=== PATIENT | male | born 1945 | race Caucasian/White ===

== ENCOUNTER 2017-05-12 20:45 | Inpatient (IN) | payer MEDICARE, MEDICAID, OTHER ==
[~2017-05-12] VITALS: Ht 172.7 cm; Wt 57.1 kg
[2017-05-12 21:36] VITALS: BP 153/92; PULSE 77; RESP 18; TEMP 97.4; O2SAT 96
[2017-05-13 03:06] LABS: AUTOMATED NEUTROPHIL # 5.3 TH/MM3 (1.8-7.7); BASOPHIL % 0.6 % (0.0-2.0); EOSINOPHIL % 0.3 % (0.0-4.0); HEMATOCRIT 40.6 % (39.0-51.0); HEMOGLOBIN 14.7 GM/DL (13.0-17.0); LYMPH % 17.7 % (9.0-44.0); LYMPHOCYTE # 1.3 TH/MM3 (1.0-4.8); MEAN CELL VOLUME 94.6 FL (80.0-100.0); MEAN CORPUSCULAR HEMOGLOBIN 34.2 PG (27.0-34.0); MEAN CORPUSCULAR HGB CONC 36.2 % (32.0-36.0); MONO % 8.3 % (0.0-8.0); MONOCYTE # 0.6 TH/MM3 (0-0.9); NEUT % 73.1 % (16.0-70.0); PLATELET COUNT 157 TH/MM3 (150-450); RED BLOOD COUNT 4.29 MIL/MM3 (4.50-5.90); RED CELL DISTRIBUTION WIDTH 13.8 % (11.6-17.2); WHITE BLOOD COUNT 7.2 TH/MM3 (4.0-11.0)
[2017-05-13 03:07] LABS: AMORPHOUS SEDIMENT, URINE RARE; BACTERIA, URINE RARE /hpf; BILIRUBIN, URINE NEG (NEG); BLOOD, URINE MOD (NEG); GLUCOSE,URINE NEG (NEG); KETONE, URINE 10 mg/dL (NEG); MUCUS URINE FEW /lpf (OCC); NITRITE,URINE NEG (NEG); SQUAMOUS EPITHELIAL CELL URINE 1 /hpf (0-5); URINE COLOR YELLOW (YELLW/STRAW); URINE LEUKOCYTE ESTERASE NEG (NEG)
[2017-05-13 03:20] LABS: ALBUMIN 3.7 GM/DL (3.4-5.0); ALT (GPT) 10 U/L (12-78); AST (GOT) 19 U/L (15-37); BICARBONATE 25.2 MEQ/L (21.0-32.0); BLOOD UREA NITROGEN 13 MG/DL (7-18); CALCIUM 8.5 MG/DL (8.5-10.1); CHLORIDE 108 MEQ/L (98-107); GLOMERULAR FILTRATION RATE 95 ML/MIN (>89); GLUCOSE,RANDOM 97 MG/DL (74-106); SODIUM (NA) 141 MEQ/L (136-145)
[2017-05-13 03:29] LABS: ALKALINE PHOSPHATASE 73 U/L (45-117); TOTAL BILIRUBIN ADULT 1.4 MG/DL (0.2-1.0); TOTAL PROTEIN 6.8 GM/DL (6.4-8.2)
[2017-05-13 03:37] LABS: OVALOCYTES 1+ (NORMAL)
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
[2017-05-13 08:00] VITALS: BP 146/87; PULSE 71; RESP 17; TEMP 97.9; O2SAT 98
[2017-05-13] MEDS ORDERED: CARB25TA18 (09:21)
[2017-05-13] MEDS ORDERED: CARBIDOPA/LEVODOPA 25 MG/100 MG TAB PO SCH (11:45)
[2017-05-13 12:00] VITALS: BP 152/89; PULSE 74; RESP 15; O2SAT 97
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
[2017-05-13] MEDS ORDERED: MAGNESIUM HYDROXIDE SUSP 30 ML CUP PO PRN (13:30)
[2017-05-13] MEDS ORDERED: ALUMINUM/MAGNESIUM/SIMETH 30 ML CUP PO PRN (13:30)
[2017-05-13] MEDS ORDERED: ACETAMINOPHEN 325 MG TAB PO PRN (13:30)
[2017-05-13 14:40] VITALS: BP 166/85; PULSE 89; RESP 18; TEMP 97.8; O2SAT 89; O2SAT 97
--- NOTE | 2017-05-13 23:20 | EKG ---
Date Performed: 05/13/2017 Time Performed: 14:35:27 PTAGE: 72 years EKG: Sinus rhythm RIGHT AXIS DEVIATION CONSIDER ARM LEAD REVERSAL NONSPECIFIC T-WAVE ABNORMALITY ABNORMAL ECG NO PREVIOUS TRACING DOCTOR: Xiang Calhoun Interpretating Date/Time 05/13/2017 23:19:03
[2017-05-14 05:52] VITALS: BP 145/80; PULSE 65; RESP 17; TEMP 97.7; O2SAT 98
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
[2017-05-14] MEDS: CARBIDOPA/LEVODOPA 25 MG/100 MG TAB PO SCH ×3 (13:00→21:01)
[2017-05-14 13:11] LABS: BICARBONATE 26.9 MEQ/L (21.0-32.0); BLOOD UREA NITROGEN 18 MG/DL (7-18); CALCIUM 9.9 MG/DL (8.5-10.1); CHLORIDE 105 MEQ/L (98-107); CHOLESTEROL 157 MG/DL (120-200); CHOLESTEROL/ HDL RATIO 2.36 RATIO; CREATININE 0.86 MG/DL (0.60-1.30); GLOMERULAR FILTRATION RATE 88 ML/MIN (>89); GLUCOSE,RANDOM 72 MG/DL (74-106); HDL CHOLESTEROL 66.4 MG/DL (40.0-60.0); LDL CHOLESTEROL 78 MG/DL (0-99); SODIUM (NA) 139 MEQ/L (136-145); TRIGLYCERIDES 62 MG/DL (42-150)
--- NOTE | 2017-05-14 14:22 | EKG ---
Date Performed: 05/14/2017 Time Performed: 13:46:54 PTAGE: 72 years EKG: Sinus rhythm LEFT ANTERIOR FASCICULAR BLOCK VOLTAGE CRITERIA FOR LVH ABNORMAL ECG PREVIOUS TRACING : 05/13/2017 14.35 Compared to previous tracing, possible arm lead reversal is no longer evident. DOCTOR: Xiang Calhoun Interpretating Date/Time 05/14/2017 14:21:29
[2017-05-14 14:24] LABS: HEMOGLOBIN A1C 4.7 % (4.3-6.0)
[2017-05-14 18:11] VITALS: BP 110/63; PULSE 74; RESP 18; TEMP 98.1; O2SAT 97
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
[2017-05-15 05:39] VITALS: BP 130/66; PULSE 72; RESP 17; TEMP 98; O2SAT 99
[2017-05-15] MEDS: CARBIDOPA/LEVODOPA 25 MG/100 MG TAB PO SCH ×4 (08:41→21:15)
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
[2017-05-15 18:12] VITALS: BP 135/63; PULSE 58; RESP 16; TEMP 97.4; O2SAT 99
[2017-05-16 05:59] VITALS: BP 166/75; PULSE 68; RESP 16; TEMP 97.3
[2017-05-16] MEDS: CARBIDOPA/LEVODOPA 25 MG/100 MG TAB PO SCH ×4 (08:14→21:01)
--- NOTE | 2017-05-16 12:29 | HHI.PYPN ---
Subjective Remarks Patient seen and examined. Chart reviewed. Case discussed with nursing staff. No behavioral issues noted overnight. Case discussed with counselor. Counselor has reached out the patient's who is comfortable accepting the patient home tomorrow. On my examination today, the patient denies SI or HI. He denies any AVH. No mood symptoms. Regarding the circumstances of his presentation here the patient says "we just got out of hand" and elaborates to say "I took too much medicine one time." Denies side effects from current medications. No physical complaints. Review of Systems Except as stated in HPI: all other systems reviewed are Neg Mental Status Examination Appearance: Appropriate, Well dressed/well groomed Consciousness: Alert Orientation: Person, Place (at least) Motor Activity: Other (no resting tremor presently. Mild cogwheeling.) Speech: Unremarkable Language: Adequate Fund of Knowledge: Adequate Attention and Concentration: Adequate Memory: Impaired (fair) Mood: Appropriate Affect: Appropriate Thought Process & Associations: Intact Thought Content: Appropriate Hallucination Type: None Delusion Type: None Suicidal Ideation: No Suicidal Plan: No Suicidal Intention: No Homicidal Ideation: No Homicidal Plan: No Homicidal Intention: No Mental Status Exam Remarks Insight and judgment are perhaps fair Results Labs Labs reviewed. Vitals/IOs Vital Signs Date Time Temp Pulse Resp B/P (MAP) Pulse Ox O2 Delivery O2 Flow Rate FiO2 05/16/17 05:59 97.3 68 16 166/75 (105) 05/15/17 18:12 99 05/13/17 12:00 Room Air Intake and Output 05/16/17 05/16/17 05/17/17 08:00 16:00 00:00 Intake Total 480 ml Balance 480 ml Assessment & Plan Problem List: (1) Adjustment disorder with mixed disturbance of emotions and conduct ICD Codes: F43.25 - Adjustment disorder with mixed disturbance of emotions and conduct Assessment & Plan Continue Sinemet as ordered. Neurology input noted and appreciated. Hospitalist input noted and appreciated. Continue to monitor on the inpatient unit. Continue other medications and care as ordered. Justification for Cont. Inpt. Final discharge planning Discharge Planning Anticipate discharge tomorrow Tom Toney MD May 16, 2017 12:29
[2017-05-16 18:18] VITALS: BP 146/69; PULSE 66; RESP 18; TEMP 97.7; O2SAT 100
[2017-05-17 05:26] VITALS: BP 148/75; PULSE 71; RESP 16; TEMP 97.8; O2SAT 95
[2017-05-17] MEDS: CARBIDOPA/LEVODOPA 25 MG/100 MG TAB PO SCH ×3 (08:32→17:19)
[2017-05-17] MEDS ORDERED: Carbidopa-Levodopa 25-100 Mg PO (09:26)
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
[2017-05-17 17:38] VITALS: BP 135/70; PULSE 76; TEMP 97.5; O2SAT 96
== END 2017-05-17 20:40 | disposition home or self-care (01) | DRG 882 ==
LOC: NEPE 20:45 → NEDA 05-13 13:26 → H250 05-13 14:40
PROVIDERS: ADMIT Psychiatry & Neurology Psychiatry; ATTEND Psychiatry & Neurology Psychiatry
DX: F43.25 Adjustment disorder with mixed disturbance of emotions and conduct (principal); G20 Parkinson's disease; F02.80 Dementia in other diseases classified elsewhere, unspecified severity, without behavioral disturbance, psychotic disturbance, mood disturbance, and anxiety; M19.90 Unspecified osteoarthritis, unspecified site; R03.0 Elevated blood-pressure reading, without diagnosis of hypertension
CPT/HCPCS: 80048; 80053; 80061; 80307; 81001; 83036; 84443; 85025; 93005

== ENCOUNTER 2017-09-03 13:36 | Emergency (ER) | payer MEDICARE, OTHER ==
[~2017-09-03] VITALS: Ht 172.7 cm; Wt 65.0 kg
[~2017-09-03 13:36] MED LIST: Carbidopa-Levodopa 25-100 Mg PO
[2017-09-03 13:56] VITALS: BP 148/77; PULSE 106; RESP 16; TEMP 98.1; O2SAT 97
[2017-09-03] MEDS ORDERED: CARBIDOPA/LEVODOPA 25 MG/100 MG TAB PO SCH (15:45)
--- NOTE | 2017-09-03 16:01 | PD ---
HPI Chief Complaint: Medical Clearance Time Seen by Provider: 15:33 Travel History International Travel<30 days: No Contact w/Intl Traveler<30days: No Traveled to known affect area: No History of Present Illness HPI Patient is a 72-year-old male presenting to to the emergency department for medication refill. Patient has a history of Parkinson's disease, he reports that he takes Sinemet every 4 hours, he has not had it in 6 hours. When he does not take it he states that he has a hard time walking. Patient can move his legs, he denies any back pain. Patient reports that the symptoms are similar to what is experienced in the past. He denies any bladder bowel incontinence, no saddle paresthesia. Patient had to be brought into emergency department in a wheelchair, when he got to [facility] he was ambulatory. He denies any pain. PFSH Past Medical History Arthritis: Yes (arthritis in legs) Hypertension: Yes Musculoskeletal: Yes Parkinson's Disease: Yes Past Surgical History Other Surgery: Yes Social History Alcohol Use: No Tobacco Use: No Substance Use: No Allergies-Medications (Allergen,Severity, Reaction): Coded Allergies: MRI PRECAUTION (Verified Allergy, Unknown, 05/14/17) Left shoulder metal prosthesis Reported Meds & Prescriptions Reported Meds & Active Scripts Active [Carbidopa-Levodopa 25-100 Mg] 1 TAB Tab 1 Tab PO QID 15 Days Review of Systems Except as stated in HPI: all other systems reviewed are Neg Neurologic: Positive: Weakness, Focal Abnormalities, Tremor Physical Exam Narrative GENERAL: Well-developed, well-nourished, alert elderly male. Presenting in no acute distress. SKIN: Warm and dry. HEAD: Atraumatic. Normocephalic. EYES: Pupils equal and round. No scleral icterus. No injection or drainage. ENT: No nasal bleeding or discharge. Mucous membranes pink and moist. NECK: Trachea midline. No JVD. CARDIOVASCULAR: Regular rate and rhythm. RESPIRATORY: No accessory muscle use. Clear to auscultation. Breath sounds equal bilaterally. GASTROINTESTINAL: Abdomen soft, non-tender, nondistended. Hepatic and splenic margins not palpable. MUSCULOSKELETAL: Extremities without clubbing, cyanosis, or edema. No obvious deformities. NEUROLOGICAL: Awake and alert. No obvious cranial nerve deficits. Motor grossly within normal limits. Five out of 5 muscle strength in the arms and legs. Tremor upper extremities. PSYCHIATRIC: Appropriate mood and affect; insight and judgment normal. Data Data Last Documented VS Vital Signs Date Time Temp Pulse Resp B/P (MAP) Pulse Ox O2 Delivery O2 Flow Rate FiO2 09/03/17 15:40 18 09/03/17 13:56 98.1 106 148/77 (100) 97 Orders Orders Carbidopa-Levodopa 25-100 Mg (Sinemet 25 (09/03/17 15:45) Complete Blood Count With Diff (09/03/17 15:56) Comprehensive Metabolic Panel (09/03/17 15:56) Urinalysis - C+S If Indicated (09/03/17 15:56) Labs Laboratory Tests Test 09/03/17 16:25 White Blood Count 5.8 TH/MM3 Red Blood Count 4.33 MIL/MM3 Hemoglobin 14.8 GM/DL Hematocrit 42.1 % Mean Corpuscular Volume 97.2 FL Mean Corpuscular Hemoglobin 34.1 PG Mean Corpuscular Hemoglobin Concent 35.1 % Red Cell Distribution Width 13.0 % Platelet Count 158 TH/MM3 Mean Platelet Volume 8.1 FL Neutrophils (%) (Auto) 64.6 % Lymphocytes (%) (Auto) 21.3 % Monocytes (%) (Auto) 12.1 % Eosinophils (%) (Auto) 1.3 % Basophils (%) (Auto) 0.7 % Neutrophils # (Auto) 3.8 TH/MM3 Lymphocytes # (Auto) 1.2 TH/MM3 Monocytes # (Auto) 0.7 TH/MM3 Eosinophils # (Auto) 0.1 TH/MM3 Basophils # (Auto) 0.0 TH/MM3 CBC Comment DIFF FINAL Differential Comment Blood Urea Nitrogen 19 MG/DL Creatinine 0.94 MG/DL Random Glucose 91 MG/DL Total Protein 7.1 GM/DL Albumin 4.1 GM/DL Calcium Level 8.7 MG/DL Alkaline Phosphatase 89 U/L Aspartate Amino Transf (AST/SGOT) 24 U/L Alanine Aminotransferase (ALT/SGPT) 15 U/L Total Bilirubin 1.0 MG/DL Sodium Level 144 MEQ/L Potassium Level 3.7 MEQ/L Chloride Level 109 MEQ/L Carbon Dioxide Level 27.7 MEQ/L Anion Gap 7 MEQ/L Estimat Glomerular Filtration Rate 79 ML/MIN MDM Medical Decision Making Medical Screen Exam Complete: Yes Emergency Medical Condition: Yes Interpretation(s) Laboratory Tests Test 09/03/17 16:25 White Blood Count 5.8 TH/MM3 Red Blood Count 4.33 MIL/MM3 Hemoglobin 14.8 GM/DL Hematocrit 42.1 % Mean Corpuscular Volume 97.2 FL Mean Corpuscular Hemoglobin 34.1 PG Mean Corpuscular Hemoglobin Concent 35.1 % Red Cell Distribution Width 13.0 % Platelet Count 158 TH/MM3 Mean Platelet Volume 8.1 FL Neutrophils (%) (Auto) 64.6 % Lymphocytes (%) (Auto) 21.3 % Monocytes (%) (Auto) 12.1 % Eosinophils (%) (Auto) 1.3 % Basophils (%) (Auto) 0.7 % Neutrophils # (Auto) 3.8 TH/MM3 Lymphocytes # (Auto) 1.2 TH/MM3 Monocytes # (Auto) 0.7 TH/MM3 Eosinophils # (Auto) 0.1 TH/MM3 Basophils # (Auto) 0.0 TH/MM3 CBC Comment DIFF FINAL Differential Comment Blood Urea Nitrogen 19 MG/DL Creatinine 0.94 MG/DL Random Glucose 91 MG/DL Total Protein 7.1 GM/DL Albumin 4.1 GM/DL Calcium Level 8.7 MG/DL Alkaline Phosphatase 89 U/L Aspartate Amino Transf (AST/SGOT) 24 U/L Alanine Aminotransferase (ALT/SGPT) 15 U/L Total Bilirubin 1.0 MG/DL Sodium Level 144 MEQ/L Potassium Level 3.7 MEQ/L Chloride Level 109 MEQ/L Carbon Dioxide Level 27.7 MEQ/L Anion Gap 7 MEQ/L Estimat Glomerular Filtration Rate 79 ML/MIN Vital Signs Date Time Temp Pulse Resp B/P (MAP) Pulse Ox O2 Delivery O2 Flow Rate FiO2 09/03/17 15:40 18 09/03/17 13:56 98.1 106 16 148/77 (100) 97 Differential Diagnosis Parkinson's versus metabolic abnormality versus overdose versus neurological deficit versus other Narrative Course Patient is a 72-year-old male that presented from [facility] for evaluation of possible medication refill and gait abnormality. Patient states that this happened to him before when he misses doses of Sinemet. Patient was given his normal home dose. Labs were assessed, there were no acute findings. Patient was able to get out of bed with assistance and he had a shuffling gait for about 6 feet. Patient is unsteady on his feet. Patient was given Sinemet approximately half an hour prior. Will reassess. Care of patient transferred to Rell RODRIGUEZ at the end of my shift, he will determine patient's disposition Alma Jimenes Sep 03, 2017 16:01
[2017-09-03 16:41] LABS: AUTOMATED NEUTROPHIL # 3.8 TH/MM3 (1.8-7.7); BASOPHIL % 0.7 % (0.0-2.0); EOSINOPHIL # 0.1 TH/MM3 (0-0.4); EOSINOPHIL % 1.3 % (0.0-4.0); HEMATOCRIT 42.1 % (39.0-51.0); HEMOGLOBIN 14.8 GM/DL (13.0-17.0); LYMPH % 21.3 % (9.0-44.0); LYMPHOCYTE # 1.2 TH/MM3 (1.0-4.8); MEAN CELL VOLUME 97.2 FL (80.0-100.0); MEAN CORPUSCULAR HEMOGLOBIN 34.1 PG (27.0-34.0); MEAN CORPUSCULAR HGB CONC 35.1 % (32.0-36.0); MEAN PLATELET VOLUME 8.1 FL (7.0-11.0); MONO % 12.1 % (0.0-8.0); MONOCYTE # 0.7 TH/MM3 (0-0.9); NEUT % 64.6 % (16.0-70.0); PLATELET COUNT 158 TH/MM3 (150-450); RED BLOOD COUNT 4.33 MIL/MM3 (4.50-5.90); WHITE BLOOD COUNT 5.8 TH/MM3 (4.0-11.0)
[2017-09-03 17:08] LABS: ALBUMIN 4.1 GM/DL (3.4-5.0); BICARBONATE 27.7 MEQ/L (21.0-32.0); BLOOD UREA NITROGEN 19 MG/DL (7-18); CALCIUM 8.7 MG/DL (8.5-10.1); CHLORIDE 109 MEQ/L (98-107); CREATININE 0.94 MG/DL (0.60-1.30); GLOMERULAR FILTRATION RATE 79 ML/MIN (>89); GLUCOSE,RANDOM 91 MG/DL (74-106); SODIUM (NA) 144 MEQ/L (136-145)
[2017-09-03 17:22] LABS: ALKALINE PHOSPHATASE 89 U/L (45-117); ALT (GPT) 15 U/L (12-78); AST (GOT) 24 U/L (15-37); TOTAL PROTEIN 7.1 GM/DL (6.4-8.2)
[2017-09-03] MEDS ORDERED: Carbidopa-Levodopa 25-100 Mg PO (19:16)
--- NOTE | 2017-09-03 19:17 | PD ---
Data Data Last Documented VS Vital Signs Date Time Temp Pulse Resp B/P (MAP) Pulse Ox O2 Delivery O2 Flow Rate FiO2 09/03/17 15:40 18 09/03/17 13:56 98.1 106 148/77 (100) 97 Orders Orders Carbidopa-Levodopa 25-100 Mg (Sinemet 25 (09/03/17 15:45) Complete Blood Count With Diff (09/03/17 15:56) Comprehensive Metabolic Panel (09/03/17 15:56) Urinalysis - C+S If Indicated (09/03/17 15:56) Psych Screen (09/03/17 20:27) Labs Laboratory Tests Test 09/03/17 16:25 09/03/17 19:25 White Blood Count 5.8 TH/MM3 Red Blood Count 4.33 MIL/MM3 Hemoglobin 14.8 GM/DL Hematocrit 42.1 % Mean Corpuscular Volume 97.2 FL Mean Corpuscular Hemoglobin 34.1 PG Mean Corpuscular Hemoglobin Concent 35.1 % Red Cell Distribution Width 13.0 % Platelet Count 158 TH/MM3 Mean Platelet Volume 8.1 FL Neutrophils (%) (Auto) 64.6 % Lymphocytes (%) (Auto) 21.3 % Monocytes (%) (Auto) 12.1 % Eosinophils (%) (Auto) 1.3 % Basophils (%) (Auto) 0.7 % Neutrophils # (Auto) 3.8 TH/MM3 Lymphocytes # (Auto) 1.2 TH/MM3 Monocytes # (Auto) 0.7 TH/MM3 Eosinophils # (Auto) 0.1 TH/MM3 Basophils # (Auto) 0.0 TH/MM3 CBC Comment DIFF FINAL Differential Comment Blood Urea Nitrogen 19 MG/DL Creatinine 0.94 MG/DL Random Glucose 91 MG/DL Total Protein 7.1 GM/DL Albumin 4.1 GM/DL Calcium Level 8.7 MG/DL Alkaline Phosphatase 89 U/L Aspartate Amino Transf (AST/SGOT) 24 U/L Alanine Aminotransferase (ALT/SGPT) 15 U/L Total Bilirubin 1.0 MG/DL Sodium Level 144 MEQ/L Potassium Level 3.7 MEQ/L Chloride Level 109 MEQ/L Carbon Dioxide Level 27.7 MEQ/L Anion Gap 7 MEQ/L Estimat Glomerular Filtration Rate 79 ML/MIN Urine Color YELLOW Urine Turbidity CLEAR Urine pH 6.0 Urine Specific [place] 1.021 Urine Protein NEG mg/dL Urine Glucose (UA) NEG mg/dL Urine Ketones TRACE mg/dL Urine Occult Blood NEG Urine Nitrite NEG Urine Bilirubin NEG Urine Urobilinogen 4.0 OR GREATER mg/dL Urine Leukocyte Esterase NEG Urine RBC LESS THAN 1 /hpf Urine WBC 2 /hpf Urine Mucus FEW /lpf Microscopic Urinalysis Comment CULT NOT INDICATED MDM Medical Record Reviewed: Yes Supervised Visit with OSMEL: No Narrative Course See previous providers notes for complete history of present illness. I assumed care of this patient to follow-up after Sinemet administration. He was sent here by [facility] for medical clearance. Essentially he ran out of his Sinemet which he uses for Parkinson's disease and he was having difficulty ambulating. He was given Sinemet. Upon my examination he is able to ambulate down the hallway without any difficulty. He reports that he feels perfectly fine. He will be given a refill of his Sinemet. He is medically cleared. Terrell Hameedjannet declines taking the patient back to their institution and feels that he is outside of their scope of practice. Diagnosis Primary Impression: Medication refill Med/Other Pt SpecificInfo: Prescription(s) given Scripts [Carbidopa-Levodopa 25-100 Mg] 1 TAB TAB No Conflict Check 1 TAB PO QID for Parkinson's Disease for 15 Days, 1 Refill Prov: Santiago Jarrell MD 09/03/17 Rell Carlos Sep 03, 2017 19:17
[2017-09-03 20:17] LABS: BILIRUBIN, URINE NEG (NEG); BLOOD, URINE NEG (NEG); GLUCOSE,URINE NEG (NEG); KETONE, URINE TRACE mg/dL (NEG); MUCUS URINE FEW /lpf (OCC); NITRITE,URINE NEG (NEG); URINE COLOR YELLOW (YELLW/STRAW); URINE LEUKOCYTE ESTERASE NEG (NEG)
[2017-09-03 20:31] VITALS: BP 177/94; PULSE 98; RESP 18; O2SAT 97
[2017-09-03] MEDS ORDERED: SERO50TA PO ×2 (21:33→23:18)
[2017-09-03] MEDS ORDERED: SERO200T PO (23:22)
[2017-09-04] MEDS: CARBIDOPA/LEVODOPA 25 MG/100 MG TAB PO SCH ×6 (03:53→17:01)
[2017-09-04 07:15] VITALS: BP 157/68; PULSE 80; RESP 18; TEMP 98.5; O2SAT 100
[2017-09-04] MEDS ORDERED: CARBIDOPA/LEVODOPA 25 MG/100 MG TAB PO SCH (08:30)
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
[2017-09-04 13:00] VITALS: BP 160/70; PULSE 89; RESP 18; TEMP 98.5; O2SAT 100
--- NOTE | 2017-09-04 15:44 | PD ---
Physical Exam Date Seen by Provider: Sep 04, 2017 Time Seen by Provider: 15:41 Data Data Last Documented VS Vital Signs Date Time Temp Pulse Resp B/P (MAP) Pulse Ox O2 Delivery O2 Flow Rate FiO2 09/04/17 13:00 98.5 89 18 160/70 (100) 100 Room Air Orders Orders Carbidopa-Levodopa 25-100 Mg (Sinemet 25 (09/03/17 15:45) Complete Blood Count With Diff (09/03/17 15:56) Comprehensive Metabolic Panel (09/03/17 15:56) Urinalysis - C+S If Indicated (09/03/17 15:56) Psych Screen (09/03/17 20:27) Carbidopa-Levodopa 25-100 Mg (Sinemet 25 (09/04/17 02:45) Carbidopa-Levodopa 25-100 Mg (Sinemet 25 (09/04/17 08:30) Carbidopa-Levodopa 25-100 Mg (Sinemet 25 (09/04/17 12:00) Diet Regular Basic (09/04/17 Dinner) Ed Discharge Order (09/04/17 15:41) Labs Laboratory Tests Test 09/03/17 16:25 09/03/17 19:25 White Blood Count 5.8 TH/MM3 Red Blood Count 4.33 MIL/MM3 Hemoglobin 14.8 GM/DL Hematocrit 42.1 % Mean Corpuscular Volume 97.2 FL Mean Corpuscular Hemoglobin 34.1 PG Mean Corpuscular Hemoglobin Concent 35.1 % Red Cell Distribution Width 13.0 % Platelet Count 158 TH/MM3 Mean Platelet Volume 8.1 FL Neutrophils (%) (Auto) 64.6 % Lymphocytes (%) (Auto) 21.3 % Monocytes (%) (Auto) 12.1 % Eosinophils (%) (Auto) 1.3 % Basophils (%) (Auto) 0.7 % Neutrophils # (Auto) 3.8 TH/MM3 Lymphocytes # (Auto) 1.2 TH/MM3 Monocytes # (Auto) 0.7 TH/MM3 Eosinophils # (Auto) 0.1 TH/MM3 Basophils # (Auto) 0.0 TH/MM3 CBC Comment DIFF FINAL Differential Comment Blood Urea Nitrogen 19 MG/DL Creatinine 0.94 MG/DL Random Glucose 91 MG/DL Total Protein 7.1 GM/DL Albumin 4.1 GM/DL Calcium Level 8.7 MG/DL Alkaline Phosphatase 89 U/L Aspartate Amino Transf (AST/SGOT) 24 U/L Alanine Aminotransferase (ALT/SGPT) 15 U/L Total Bilirubin 1.0 MG/DL Sodium Level 144 MEQ/L Potassium Level 3.7 MEQ/L Chloride Level 109 MEQ/L Carbon Dioxide Level 27.7 MEQ/L Anion Gap 7 MEQ/L Estimat Glomerular Filtration Rate 79 ML/MIN Urine Color YELLOW Urine Turbidity CLEAR Urine pH 6.0 Urine Specific [place] 1.021 Urine Protein NEG mg/dL Urine Glucose (UA) NEG mg/dL Urine Ketones TRACE mg/dL Urine Occult Blood NEG Urine Nitrite NEG Urine Bilirubin NEG Urine Urobilinogen 4.0 OR GREATER mg/dL Urine Leukocyte Esterase NEG Urine RBC LESS THAN 1 /hpf Urine WBC 2 /hpf Urine Mucus FEW /lpf Microscopic Urinalysis Comment CULT NOT INDICATED MDM Supervised Visit with OSMEL: No Narrative Course This patient was initially brought in for evaluation of gait difficulties. Patient has Parkinson's, states that he has these symptoms when he does not get his Sinemet. He was evaluated by SHARITA Rivas and Rell Carlos PA-C and medically cleared. He was then evaluated by Anabell Lisa, the psychiatric mental health nurse and deemed stable for discharge. Plan is for the patient to follow-up with outpatient resources. He stable and discharged home. Diagnosis Primary Impression: Parkinson disease Additional Impression: Adjustment disorder Qualified Codes: F43.20 - Adjustment disorder, unspecified Referrals: [facility] (Out patient) Additional Instruction: Resume at home medications as previously prescribed. Scripts [Carbidopa-Levodopa 25-100 Mg] 1 TAB TAB No Conflict Check 1 TAB PO QID for Parkinson's Disease for 15 Days, 1 Refill Prov: Santiago Jarrell MD 09/03/17 Disposition: DISCHARGE HOME Condition: Stable Juliana Beck Sep 04, 2017 15:44
[2017-09-04 17:00] VITALS: BP 155/65; PULSE 82; RESP 18; TEMP 98.5; O2SAT 100
== END 2017-09-04 19:51 | disposition home or self-care (01) ==
LOC: NEPD 13:36
DX: G20 Parkinson's disease (principal); F43.20 Adjustment disorder, unspecified; R53.1 Weakness; R25.1 Tremor, unspecified; M19.90 Unspecified osteoarthritis, unspecified site; I10 Essential (primary) hypertension; Z79.899 Other long term (current) drug therapy; Z91.14 Patient's other noncompliance with medication regimen
CPT/HCPCS: 80053; 81001; 85025; 99283

== ENCOUNTER 2017-09-08 17:55 | Emergency (ER) | payer MEDICARE, MEDICAID, OTHER ==
[~2017-09-08] VITALS: Ht 172.7 cm; Wt 66.0 kg
[~2017-09-08 17:55] MED LIST changes: +SERO200T PO; +SERO50TA PO
[2017-09-08 18:16] VITALS: BP 137/68; PULSE 72; RESP 18; O2SAT 98
--- NOTE | 2017-09-08 19:31 | PD ---
HPI Chief Complaint: Psychiatric Symptoms Time Seen by Provider: 19:07 Travel History International Travel<30 days: No Contact w/Intl Traveler<30days: No Traveled to known affect area: No History of Present Illness HPI 72-year-old white male presents emergency department under Giraldo act by PD. According to the Giraldo act the patient is unable to care for himself due to his Parkinson's and his dementia. He had been living at home with his . She has gotten a temporary injunction against him. She went to the hospital today to have her gallbladder taken out and she will not be home for several days. She had called the police advising them of this fact. They put him under a Giraldo act because he was alone at home and they were concerned that he could not take care of himself. The patient is not suicidal homicidal. He has detox and has home health care that visits. He denies any acute medical complaints. He states that he does not get along with his all the time and he does not understand the full extent of this temporary injunction against him. [facility] Past Medical History Arthritis: Yes (arthritis in legs) Hypertension: Yes Musculoskeletal: Yes Parkinson's Disease: Yes Tetanus Vaccination: Unknown ?: Not Past Surgical History Narrative Surgical Left shoulder surgery Other Surgery: Yes Social History Alcohol Use: No Tobacco Use: No Substance Use: No Allergies-Medications (Allergen,Severity, Reaction): Coded Allergies: MRI PRECAUTION (Verified Allergy, Unknown, 05/14/17) Left shoulder metal prosthesis No Known Allergies (Verified Allergy, Unknown, 09/08/17) Reported Meds & Prescriptions Reported Meds & Active Scripts Active [Carbidopa-Levodopa 25-100 Mg] 1 TAB Tab 1 Tab PO QID 15 Days Reported Seroquel (Quetiapine Fumarate) 200 Mg Tab 200 Mg PO HS Seroquel (Quetiapine Fumarate) 50 Mg Tab 50 Mg PO TID Review of Systems General / Constitutional: No: Fever Eyes: No: Visual changes HENT: No: Headaches Cardiovascular: No: Chest Pain or Discomfort Respiratory: No: Shortness of Breath Gastrointestinal: No: Abdominal Pain Genitourinary: No: Dysuria Musculoskeletal: Positive: Arthralgias, Pain Skin: No Rash Neurologic: Positive: Coordination Problem (Secondary to Parkinson's disease), Tremor, No: Weakness Psychiatric: Positive: Mood Disorder, No: Anxiety, Depression, Suicidal Ideations, Disorder of Thought, Substance Abuse, Homicidal Ideation Endocrine: No: Polydipsia Hematologic/Lymphatic: No: Easy Bruising Physical Exam Narrative GENERAL: Well-nourished, well-developed patient. SKIN: Warm and dry. HEAD: Normocephalic and atraumatic. EYES: No scleral icterus. No injection or drainage. ENT: No nasal drainage noted. Mucous membranes pink. Airway patent. NECK: Supple, trachea midline. Moves head freely without obvious discomfort. CARDIOVASCULAR: Regular rate and rhythm without murmurs, gallops, or rubs. RESPIRATORY: Breath sounds equal bilaterally. No accessory muscle use. GASTROINTESTINAL: Abdomen soft, non-tender, nondistended. EXTREMITIES: No cyanosis or edema. BACK: Nontender without obvious deformity. No CVA tenderness. NEURO: Patient is alert and oriented. Patient has tremor of Parkinson's. He can ambulate on his own but does walk very slowly and has a wide-based gait. The normal speech. PSYCH: No delusions. No auditory or visual hallucinations. Data Data Last Documented VS Vital Signs Date Time Temp Pulse Resp B/P (MAP) Pulse Ox O2 Delivery O2 Flow Rate FiO2 09/08/17 18:16 72 18 137/68 (91) 98 Orders Orders Complete Blood Count With Diff (09/08/17 18:37) Comprehensive Metabolic Panel (09/08/17 18:37) Thyroid Stimulating Hormone (09/08/17 18:37) Psych Screen (09/08/17 18:37) Drug Screen, Random Urine (09/08/17 18:37) Labs Laboratory Tests Test 09/08/17 19:00 [facility] Medical Decision Making Medical Screen Exam Complete: Yes Emergency Medical Condition: Yes Medical Record Reviewed: Yes Differential Diagnosis MDM: High Differential diagnoses: Schizophrenia, schizoaffective disorder, bipolar, anxiety, depression, adjustment reaction, mood disorder NOS, ODD, depressive disorder NOS, dementia, dementia with agitation, psychosis NOS, substance induced mood disorder, DMDD, Asperger syndrome, infection,electrolyte abnormality, malingering. Narrative Course Mental health screening discussed with the patient. Psychiatric screen ordered. Patient has been medically cleared. We have contacted case management regarding this patient. The patient does not appear to be suffering from acute mental illness. He will be evaluated by the psych screener. This is a problem with placement and and injunction by the his against him. The called police advising him that he would be alone and she knew he would be placed under Giraldo act. She is currently admitted to the hospital to have her gallbladder out and will not be home for 2 days. This is medical clearance for psychiatric admission Alec Holloway Sep 08, 2017 19:31
[2017-09-08 19:33] LABS: AUTOMATED NEUTROPHIL # 5.2 TH/MM3 (1.8-7.7); BASOPHIL % 0.4 % (0.0-2.0); EOSINOPHIL % 0.6 % (0.0-4.0); HEMATOCRIT 41.8 % (39.0-51.0); HEMOGLOBIN 14.5 GM/DL (13.0-17.0); LYMPH % 14.4 % (9.0-44.0); MEAN CELL VOLUME 96.8 FL (80.0-100.0); MEAN CORPUSCULAR HEMOGLOBIN 33.7 PG (27.0-34.0); MEAN CORPUSCULAR HGB CONC 34.8 % (32.0-36.0); MEAN PLATELET VOLUME 8.2 FL (7.0-11.0); MONO % 9.5 % (0.0-8.0); MONOCYTE # 0.7 TH/MM3 (0-0.9); NEUT % 75.1 % (16.0-70.0); PLATELET COUNT 145 TH/MM3 (150-450); RED BLOOD COUNT 4.31 MIL/MM3 (4.50-5.90); RED CELL DISTRIBUTION WIDTH 12.8 % (11.6-17.2)
[2017-09-08 19:51] LABS: ALBUMIN 3.8 GM/DL (3.4-5.0); AST (GOT) 16 U/L (15-37); BICARBONATE 25.3 MEQ/L (21.0-32.0); BLOOD UREA NITROGEN 12 MG/DL (7-18); CALCIUM 9.1 MG/DL (8.5-10.1); CHLORIDE 106 MEQ/L (98-107); CREATININE 0.85 MG/DL (0.60-1.30); GLOMERULAR FILTRATION RATE 89 ML/MIN (>89); GLUCOSE,RANDOM 100 MG/DL (74-106); SODIUM (NA) 140 MEQ/L (136-145)
[2017-09-08 19:53] LABS: ALT (GPT) 8 U/L (12-78)
[2017-09-08 20:02] LABS: ALKALINE PHOSPHATASE 92 U/L (45-117); TOTAL BILIRUBIN ADULT 1.4 MG/DL (0.2-1.0); TOTAL PROTEIN 6.9 GM/DL (6.4-8.2)
[2017-09-08] MEDS ORDERED: CARBIDOPA/LEVODOPA 25 MG/100 MG TAB PO SCH (22:45)
[2017-09-08] MEDS: QUEtiapine FUMARATE 300 MG TAB PO ONE (22:45)
[2017-09-09 04:29] VITALS: BP 154/78; PULSE 72; RESP 20; O2SAT 96
[2017-09-09 08:00] VITALS: BP 136/62; PULSE 82; RESP 16; TEMP 98; O2SAT 99
--- NOTE | 2017-09-09 11:18 | PD ---
History of Present Illness Chief Complaint: Psychiatric Symptoms Time Seen by Provider: 11:10 Travel History International Travel<30 Days: No Contact w/Intl Traveler<30days: No Known affected area: No Legal Status Legal Status: Giraldo Act History of Present Illness: History of Present Illness HPI 72-year-old white, male with hx of Parkinson's, adjustment disorder who presents to emergency department under G[place]do act by PD. According to the Giraldo act the patient is unable to care for himself due to his Parkinson's and his dementia. He is living at home with his but she has gotten a temporary injunction against him. She went to the hospital today to have her gallbladder taken out and she will not be home for several days. She had called the police advising them of this fact. They put him under a Giraldo act because he was alone at home and they were concerned that he could not take care of himself. He states that he does not get along with his all the time and he does not understand the full extent of this temporary injunction against him. EMR reviewed. Patient was admitted to our psychiatric unit on 2017. The patient is alert, oriented, calm and cooperative. Speech is clear and logical. No evidence of any thought process or content disturbance. Patient is anxious regarding his home, his upcoming court date on and the injunction his has filed. He denies any current suicdal or homicidal ideation, intent or plan. Patient denies any symptom of depression. He admits to having felt depressed 2 years ago when he was diagnosed with Parkinson's. No suicidal or homicidal ideation, intent or plan. Remainder of psychiatric ROS is negative. We have contacted case management regarding this patient. The patient does not appear to be suffering from acute mental illness. This is a problem with placement and and injunction by the his against him. The called police advising him that he would be alone and she knew he would be placed under Giraldo act. 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 History of Inpatient Treatment: Yes Guns or firearms in home: No Social History x 37 years. Hx Alcohol Use: No Hx Tobacco Use: No Hx Substance Use: No Hx of Substance Use Treatment: No Family Psychiatric History Negative Allergies-Medications (Allergen,Severity, Reaction): Coded Allergies: MRI PRECAUTION (Verified Allergy, Unknown, 05/14/17) Left shoulder metal prosthesis No Known Allergies (Verified Allergy, Unknown, 09/08/17) Reported Meds & Prescriptions Reported Meds & Active Scripts Active [Carbidopa-Levodopa 25-100 Mg] 1 TAB Tab 1 Tab PO QID 15 Days Reported Seroquel (Quetiapine Fumarate) 200 Mg Tab 200 Mg PO HS Seroquel (Quetiapine Fumarate) 50 Mg Tab 50 Mg PO TID Review of Systems Psychiatric: COMPLAINS OF: Anxiety Mental Status Examination Appearance: Disheveled Consciousness: Alert Orientation: x4 Motor Activity: Abnormal gait Speech: Unremarkable Language: Adequate Fund of Knowledge: Adequate Attention and Concentration: Adequate Memory: Unremarkable Mood: Anxious Affect: Appropriate Thought Process & Associations: Intact, Logical, Goal directed Thought Content: Appropriate Hallucination Type: None Delusion Type: None Suicidal Ideation: No Suicidal Plan: No Suicidal Intention: No Homicidal Ideation: No Homicidal Plan: No Homicidal Intention: No Insight: Adequate Judgment: Adequate MDM Medical Decision Making Medical Record Reviewed: Yes Assessment/Plan History of Present Illness HPI 72-year-old white, male with hx of Parkinson's, adjustment disorder who presents to emergency department under Giraldo act by PD. According to the Giraldo act the patient is unable to care for himself due to his Parkinson's and his dementia. He is living at home with his but she has gotten a temporary injunction against him. She went to the hospital today to have her gallbladder taken out and she will not be home for several days. She had called the police advising them of this fact. They put him under a Giraldo act because he was alone at home and they were concerned that he could not take care of himself. Patient presents no evidence of any thought process or content disturbance. No suicdal or homicidal ideation. No evidence of unstable mental illness. He is future oriented. He is anxious over upcoming court case as well as of finding himself homeless. He does nto meet criteria to remain under the BA. It will be lifted. Case discussed with weatherization operations manager. Orders Orders Complete Blood Count With Diff (09/08/17 18:37) Comprehensive Metabolic Panel (09/08/17 18:37) Thyroid Stimulating Hormone (09/08/17 18:37) Psych Screen (09/08/17 18:37) Drug Screen, Random Urine (09/08/17 18:37) Quetiapine (Seroquel) (09/08/17 22:45) Carbidopa-Levodopa 25-100 Mg (Sinemet 25 (09/08/17 22:45) Diet Regular Basic (09/09/17 Breakfast) Results Vital Signs Date Time Temp Pulse Resp B/P (MAP) Pulse Ox O2 Delivery O2 Flow Rate FiO2 09/09/17 08:00 98.0 82 16 136/62 (86) 99 Room Air 09/09/17 04:29 72 20 154/78 (103) 96 Room Air 09/08/17 18:16 72 18 137/68 (91) 98 Laboratory Tests Test 09/08/17 19:00 White Blood Count 7.0 Red Blood Count 4.31 Hemoglobin 14.5 Hematocrit 41.8 Mean Corpuscular Volume 96.8 Mean Corpuscular Hemoglobin 33.7 Mean Corpuscular Hemoglobin Concent 34.8 Red Cell Distribution Width 12.8 Platelet Count 145 Mean Platelet Volume 8.2 Neutrophils (%) (Auto) 75.1 Lymphocytes (%) (Auto) 14.4 Monocytes (%) (Auto) 9.5 Eosinophils (%) (Auto) 0.6 Basophils (%) (Auto) 0.4 Neutrophils # (Auto) 5.2 Lymphocytes # (Auto) 1.0 Monocytes # (Auto) 0.7 Eosinophils # (Auto) 0.0 Basophils # (Auto) 0.0 CBC Comment DIFF FINAL Differential Comment Blood Urea Nitrogen 12 Creatinine 0.85 Random Glucose 100 Total Protein 6.9 Albumin 3.8 Calcium Level 9.1 Alkaline Phosphatase 92 Aspartate Amino Transf (AST/SGOT) 16 Alanine Aminotransferase (ALT/SGPT) 8 Total Bilirubin 1.4 Sodium Level 140 Potassium Level 3.9 Chloride Level 106 Carbon Dioxide Level 25.3 Anion Gap 9 Estimat Glomerular Filtration Rate 89 Thyroid Stimulating Hormone 3rd Gen 1.650 Urine Opiates Screen NEG Urine Barbiturates Screen NEG Urine Amphetamines Screen NEG Urine Benzodiazepines Screen NEG Urine Cocaine Screen NEG Urine Cannabinoids Screen NEG Diagnosis Primary Impression: Adjustment disorder with mixed disturbance of emotions and conduct Psychiatrically Cleared: Yes Marta Talbot [facility] Sep 09, 2017 11:18
--- NOTE | 2017-09-09 12:16 | PD ---
Physical Exam Date Seen by Provider: Sep 09, 2017 Time Seen by Provider: 12:15 Narrative 72-year-old male previously on hospice and Giraldo acted as he is unable to care for himself at home to 's recent hospitalization, has been medically cleared , and seen by psychiatric services and deemed to be an appropriate for psych admission. Case management was notified and they are working on placement for hospice care until his to return home and care for him if that is appropriate. Data Data Last Documented VS Vital Signs Date Time Temp Pulse Resp B/P (MAP) Pulse Ox O2 Delivery O2 Flow Rate FiO2 09/09/17 08:00 98.0 82 16 136/62 (86) 99 Room Air Orders Orders Complete Blood Count With Diff (09/08/17 18:37) Comprehensive Metabolic Panel (09/08/17 18:37) Thyroid Stimulating Hormone (09/08/17 18:37) Psych Screen (09/08/17 18:37) Drug Screen, Random Urine (09/08/17 18:37) Quetiapine (Seroquel) (09/08/17 22:45) Carbidopa-Levodopa 25-100 Mg (Sinemet 25 (09/08/17 22:45) Diet Regular Basic (09/09/17 Breakfast) Hospice Consult (09/09/17 12:14) (Hub Use Only)Inp Phy Cons/Ref (09/09/17 ) Labs Laboratory Tests Test 09/08/17 19:00 White Blood Count 7.0 TH/MM3 Red Blood Count 4.31 MIL/MM3 Hemoglobin 14.5 GM/DL Hematocrit 41.8 % Mean Corpuscular Volume 96.8 FL Mean Corpuscular Hemoglobin 33.7 PG Mean Corpuscular Hemoglobin Concent 34.8 % Red Cell Distribution Width 12.8 % Platelet Count 145 TH/MM3 Mean Platelet Volume 8.2 FL Neutrophils (%) (Auto) 75.1 % Lymphocytes (%) (Auto) 14.4 % Monocytes (%) (Auto) 9.5 % Eosinophils (%) (Auto) 0.6 % Basophils (%) (Auto) 0.4 % Neutrophils # (Auto) 5.2 TH/MM3 Lymphocytes # (Auto) 1.0 TH/MM3 Monocytes # (Auto) 0.7 TH/MM3 Eosinophils # (Auto) 0.0 TH/MM3 Basophils # (Auto) 0.0 TH/MM3 CBC Comment DIFF FINAL Differential Comment Blood Urea Nitrogen 12 MG/DL Creatinine 0.85 MG/DL Random Glucose 100 MG/DL Total Protein 6.9 GM/DL Albumin 3.8 GM/DL Calcium Level 9.1 MG/DL Alkaline Phosphatase 92 U/L Aspartate Amino Transf (AST/SGOT) 16 U/L Alanine Aminotransferase (ALT/SGPT) 8 U/L Total Bilirubin 1.4 MG/DL Sodium Level 140 MEQ/L Potassium Level 3.9 MEQ/L Chloride Level 106 MEQ/L Carbon Dioxide Level 25.3 MEQ/L Anion Gap 9 MEQ/L Estimat Glomerular Filtration Rate 89 ML/MIN Thyroid Stimulating Hormone 3rd Gen 1.650 uIU/ML Urine Opiates Screen NEG Urine Barbiturates Screen NEG Urine Amphetamines Screen NEG Urine Benzodiazepines Screen NEG Urine Cocaine Screen NEG Urine Cannabinoids Screen NEG MDM Medical Record Reviewed: Yes Supervised Visit with OSMEL: Yes Narrative Course 72-year-old male previously on hospice and Giraldo acted as he is unable to care for himself at home to 's recent hospitalization, has been medically cleared , and seen by psychiatric services and deemed to be an appropriate for psych admission. Case management was notified and they are working on placement for hospice care until his to return home and care for him if that is appropriate. Diagnosis Primary Impression: Adjustment disorder with mixed disturbance of emotions and conduct Additional Impression: Parkinsons disease Patient Instructions: General Instructions Med/Other Pt SpecificInfo: No Change to Meds Condition: Stable Marty Martin Sep 09, 2017 12:16
--- NOTE | 2017-09-09 14:39 | PD ---
Data Data Last Documented VS Vital Signs Date Time Temp Pulse Resp B/P (MAP) Pulse Ox O2 Delivery O2 Flow Rate FiO2 09/09/17 08:00 98.0 82 16 136/62 (86) 99 Room Air Orders Orders Complete Blood Count With Diff (09/08/17 18:37) Comprehensive Metabolic Panel (09/08/17 18:37) Thyroid Stimulating Hormone (09/08/17 18:37) Psych Screen (09/08/17 18:37) Drug Screen, Random Urine (09/08/17 18:37) Quetiapine (Seroquel) (09/08/17 22:45) Carbidopa-Levodopa 25-100 Mg (Sinemet 25 (09/08/17 22:45) Diet Regular Basic (09/09/17 Breakfast) Hospice Consult (09/09/17 12:14) (Hub Use Only)Inp Phy Cons/Ref (09/09/17 ) Labs Laboratory Tests Test 09/08/17 19:00 White Blood Count 7.0 TH/MM3 Red Blood Count 4.31 MIL/MM3 Hemoglobin 14.5 GM/DL Hematocrit 41.8 % Mean Corpuscular Volume 96.8 FL Mean Corpuscular Hemoglobin 33.7 PG Mean Corpuscular Hemoglobin Concent 34.8 % Red Cell Distribution Width 12.8 % Platelet Count 145 TH/MM3 Mean Platelet Volume 8.2 FL Neutrophils (%) (Auto) 75.1 % Lymphocytes (%) (Auto) 14.4 % Monocytes (%) (Auto) 9.5 % Eosinophils (%) (Auto) 0.6 % Basophils (%) (Auto) 0.4 % Neutrophils # (Auto) 5.2 TH/MM3 Lymphocytes # (Auto) 1.0 TH/MM3 Monocytes # (Auto) 0.7 TH/MM3 Eosinophils # (Auto) 0.0 TH/MM3 Basophils # (Auto) 0.0 TH/MM3 CBC Comment DIFF FINAL Differential Comment Blood Urea Nitrogen 12 MG/DL Creatinine 0.85 MG/DL Random Glucose 100 MG/DL Total Protein 6.9 GM/DL Albumin 3.8 GM/DL Calcium Level 9.1 MG/DL Alkaline Phosphatase 92 U/L Aspartate Amino Transf (AST/SGOT) 16 U/L Alanine Aminotransferase (ALT/SGPT) 8 U/L Total Bilirubin 1.4 MG/DL Sodium Level 140 MEQ/L Potassium Level 3.9 MEQ/L Chloride Level 106 MEQ/L Carbon Dioxide Level 25.3 MEQ/L Anion Gap 9 MEQ/L Estimat Glomerular Filtration Rate 89 ML/MIN Thyroid Stimulating Hormone 3rd Gen 1.650 uIU/ML Urine Opiates Screen NEG Urine Barbiturates Screen NEG Urine Amphetamines Screen NEG Urine Benzodiazepines Screen NEG Urine Cocaine Screen NEG Urine Cannabinoids Screen NEG MDM Supervised Visit with OSMEL: No Narrative Course I have not examined this patient. Patient discussed with [facility] nurse, Marta SHERIFF for psychiatry, Te Martin my PA, and Case management. Patient here as [place] act. Apparently called 911 and had temporary injunction possibly restraining order filed against the patient as he has a history of parkinson's with dementia and violent outbursts. Patient was evaluated initially by [facility] which the patient had been a patient of either discharged the patient or may have fired them. Unclear. DCF has been called on this patient's behalf. BA has been lifted. [facility] has evaluated patient and he is not a candidate for respite care. Case management continuing to try and find placement for the patient but so far unsuccessful. Patient disposition is still pending case management. May require social admission in near future. Patient Instructions: General Instructions Condition: Stable Alejandro Reed MD Sep 09, 2017 14:39
[2017-09-09] MEDS: QUEtiapine FUMARATE 25 MG TAB PO SCH (17:42)
[2017-09-09] MEDS: CARBIDOPA/LEVODOPA 25 MG/100 MG TAB PO SCH (17:42)
--- NOTE | 2017-09-09 18:20 | PD ---
Data Data Last Documented VS Vital Signs Date Time Temp Pulse Resp B/P (MAP) Pulse Ox O2 Delivery O2 Flow Rate FiO2 09/09/17 16:00 16 09/09/17 08:00 98.0 82 136/62 (86) 99 Room Air Orders Orders Complete Blood Count With Diff (09/08/17 18:37) Comprehensive Metabolic Panel (09/08/17 18:37) Thyroid Stimulating Hormone (09/08/17 18:37) Psych Screen (09/08/17 18:37) Drug Screen, Random Urine (09/08/17 18:37) Quetiapine (Seroquel) (09/08/17 22:45) Carbidopa-Levodopa 25-100 Mg (Sinemet 25 (09/08/17 22:45) Diet Regular Basic (09/09/17 Breakfast) Hospice Consult (09/09/17 12:14) (Hub Use Only)Inp Phy Cons/Ref (09/09/17 ) Carbidopa-Levodopa 25-100 Mg (Sinemet 25 (09/09/17 18:00) Quetiapine (Seroquel) (09/09/17 18:00) Quetiapine (Seroquel) (09/09/17 21:00) Diet Regular Basic (09/09/17 Dinner) Labs Laboratory Tests Test 09/08/17 19:00 White Blood Count 7.0 TH/MM3 Red Blood Count 4.31 MIL/MM3 Hemoglobin 14.5 GM/DL Hematocrit 41.8 % Mean Corpuscular Volume 96.8 FL Mean Corpuscular Hemoglobin 33.7 PG Mean Corpuscular Hemoglobin Concent 34.8 % Red Cell Distribution Width 12.8 % Platelet Count 145 TH/MM3 Mean Platelet Volume 8.2 FL Neutrophils (%) (Auto) 75.1 % Lymphocytes (%) (Auto) 14.4 % Monocytes (%) (Auto) 9.5 % Eosinophils (%) (Auto) 0.6 % Basophils (%) (Auto) 0.4 % Neutrophils # (Auto) 5.2 TH/MM3 Lymphocytes # (Auto) 1.0 TH/MM3 Monocytes # (Auto) 0.7 TH/MM3 Eosinophils # (Auto) 0.0 TH/MM3 Basophils # (Auto) 0.0 TH/MM3 CBC Comment DIFF FINAL Differential Comment Blood Urea Nitrogen 12 MG/DL Creatinine 0.85 MG/DL Random Glucose 100 MG/DL Total Protein 6.9 GM/DL Albumin 3.8 GM/DL Calcium Level 9.1 MG/DL Alkaline Phosphatase 92 U/L Aspartate Amino Transf (AST/SGOT) 16 U/L Alanine Aminotransferase (ALT/SGPT) 8 U/L Total Bilirubin 1.4 MG/DL Sodium Level 140 MEQ/L Potassium Level 3.9 MEQ/L Chloride Level 106 MEQ/L Carbon Dioxide Level 25.3 MEQ/L Anion Gap 9 MEQ/L Estimat Glomerular Filtration Rate 89 ML/MIN Thyroid Stimulating Hormone 3rd Gen 1.650 uIU/ML Urine Opiates Screen NEG Urine Barbiturates Screen NEG Urine Amphetamines Screen NEG Urine Benzodiazepines Screen NEG Urine Cocaine Screen NEG Urine Cannabinoids Screen NEG MDM Supervised Visit with OSMEL: No Narrative Course This is a 72 year old male who has a history of Parkinson's disease and reported dementia. He was brought here under a restraining order placed by his for reported aggressive behavior at home. She evidently had a cholecystectomy today. I was asked by the case repairer to evaluate the patient and determined that he had capacity The patient has been cooperative, pleasant and easily managed in the emergency department. He has decision-making capacity, able to express understanding of my questions and express his wishes and answers. He is oriented 3. I do not appreciate any dementia that would limit his decision-making. Diagnosis Primary Impression: Adjustment disorder with mixed disturbance of emotions and conduct Patient Instructions: General Instructions Condition: Stable Ana Hendrix MD Sep 09, 2017 18:20
[2017-09-09] MEDS ORDERED: QUEtiapine FUMARATE 200 MG TAB PO SCH (21:00)
[2017-09-10] MEDS: CARBIDOPA/LEVODOPA 25 MG/100 MG TAB PO SCH ×6 (01:22→20:22)
[2017-09-10] MEDS: QUEtiapine FUMARATE 25 MG TAB PO SCH ×3 (10:09→17:38)
[2017-09-10 12:04] VITALS: BP 124/64; PULSE 70; RESP 20; O2SAT 97
[2017-09-10 15:30] VITALS: BP 121/78; PULSE 79; RESP 18; O2SAT 98
== END 2017-09-10 20:43 ==
LOC: NEPD 17:55
DX: F43.25 Adjustment disorder with mixed disturbance of emotions and conduct (principal); G20 Parkinson's disease; F02.80 Dementia in other diseases classified elsewhere, unspecified severity, without behavioral disturbance, psychotic disturbance, mood disturbance, and anxiety; M19.90 Unspecified osteoarthritis, unspecified site; I10 Essential (primary) hypertension; Z79.899 Other long term (current) drug therapy
CPT/HCPCS: 80053; 80307; 84443; 85025; 97163; 99285; G8987; G8988

== ENCOUNTER 2018-02-28 17:08 | Inpatient (IN) ==
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
[2018-02-28 18:12] LABS: Baso % (Auto) 0.6 % (0.0-2.0); Eos # (Auto) 0.1 th/mm3 (0.0-0.4); Hematocrit 41.3 % (39.0-51.0); Hemoglobin 14.3 gm/dL (13.0-17.0); Lymph # (Auto) 1.1 th/mm3 (1.0-4.8); Lymph % (Auto) 18.5 % (9.0-44.0); Mean Corpuscular HGB Conc 34.7 % (32.0-36.0); Mean Corpuscular Hemoglobin 33.2 pg (27.0-34.0); Mean Corpuscular Volume 95.6 fL (80.0-100.0); Mean Platelet Volume 8.3 fL (7.0-11.0); Mono # (Auto) 0.5 th/mm3 (0.0-0.9); Mono % (Auto) 7.8 % (0.0-8.0); Neut # (Auto) 4.5 th/mm3 (1.8-7.7); Neut % (Auto) 72.1 % (16.0-70.0); Platelet Count 152 th/mm3 (150-450); Red Blood Count 4.32 mil/mm3 (4.50-5.90); Red Cell Distribution Width 13.5 % (11.6-17.2); White Blood Count 6.2 th/mm3 (4.0-11.0)
[2018-02-28 18:29] LABS: Alanine Aminotransferase 6 U/L (12-78); Albumin 3.9 g/dL (3.4-5.0); Anion Gap 6 meq/L (5-15); Aspartate Aminotransferase 25 U/L (15-37); Blood Urea Nitrogen 17 mg/dL (7-18); Calcium 8.5 mg/dL (8.5-10.1); Carbon Dioxide 28.5 meq/L (21.0-32.0); Chloride 107 meq/L (98-107); Glomerular Filtration Rate 83 mL/min (>89); Glucose,Random 113 mg/dL (74-106); Potassium 4.1 meq/L (3.5-5.1); Sodium 141 meq/L (136-145)
--- NOTE | 2018-02-28 18:36 | US ---
EXAM DATE: 02/28/2018 6:30 PM EST AGE/SEX: 73 years / Male INDICATIONS: Left leg swelling. CLINICAL DATA: This is the patient's initial encounter. Patient reports that signs and symptoms have been present for 2 weeks and indicates a pain score of 3/10. MEDICAL/SURGICAL HISTORY: Hypertension. Dementia. Parkinson disease. Polyosteoarthritis. None . COMPARISON: No prior exams available for comparison. TECHNIQUE: Venous ultrasound of both lower extremities was performed from the inguinal ligament to t he proximal calf. Real-time, color Doppler and spectral tracing, compression and augmentation techni ques were used. FINDINGS: Normal compression of the deep venous system from the inguinal region to the proximal calf . No echogenic clot is seen. Normal response of the venous system to augmentation and respiration. CONCLUSION: 1. The study is negative for lower extremity deep venous thrombosis. Electronically signed by: Jaguar Hoyt MD 02/28/2018 6:35 PM EST
[2018-02-28 18:40] LABS: Alkaline Phosphatase 112 U/L (45-117); Total Protein 7.2 g/dL (6.4-8.2)
[2018-02-28 21:36] LABS: Bilirubin,Urine Negative (Negative); Clarity,Urine Clear (Clear); Color,Urine Yellow (Yellw/Straw); Glucose,Urine (UA) Negative (Negative); Leukocyte Esterase,Urine Negative (Negative); Mucus,Urine Few /lpf (Occasional); Nitrite,Urine Negative (Negative); Specific Gravity,Urine 1.014 (1.002-1.035)
[2018-02-28 22:19] LABS: Amphetamine Screen,Urine Neg (Neg); Barbiturate Screen,Urine Neg (Neg); Cannabinoid Screen,Urine Neg (Neg); Cocaine Screen,Urine Neg (Neg)
[2018-02-28] MEDS ORDERED: QUEtiapine 25 MG Tablet PO ONE (22:22)
[2018-02-28 22:31] LABS: Opiate Screen,Urine Neg (Neg)
[2018-03-01] MEDS ORDERED: Aluminum/Magnesium/Simethacone Susp 30 ML UDC PO PRN (11:36)
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
[2018-03-02 07:57] LABS: Anion Gap 5 meq/L (5-15); Blood Urea Nitrogen 11 mg/dL (7-18); Calcium 8.7 mg/dL (8.5-10.1); Carbon Dioxide 28.1 meq/L (21.0-32.0); Chloride 107 meq/L (98-107); Cholesterol 138 mg/dL (120-200); Glomerular Filtration Rate Greater Than 89 mL/min (>89); Glucose,Random 85 mg/dL (74-106); Potassium 3.7 meq/L (3.5-5.1); Sodium 140 meq/L (136-145)
[2018-03-02 08:00] LABS: LDL Cholesterol,Calculated 71 mg/dL (0-99); Triglycerides 62 mg/dL (42-150)
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
[2018-03-02 16:35] LABS: Hemoglobin A1c 4.9 % (4.3-6.0)
[2018-03-03] MEDS ORDERED: Haloperidol Inj 5 MG/ML Ampul IM SCH (01:00)
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
[2018-03-03] MEDS: Carbidopa/Levodopa CR 50/200 MG Tablet PO SCH ×3 (09:57→18:34)
[2018-03-03] MEDS ORDERED: LORazepam 1 MG Tablet PO SCH (12:00)
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
--- NOTE | 2018-03-03 16:16 | ECG ---
Date Performed: 03/02/2018 Time Performed: 13:27:36 PTAGE: 73 years EKG: Sinus rhythm LEFT ANTERIOR FASCICULAR BLOCK POSSIBLE LEFT VENTRICULAR HYPERTROPHY POSSIBLE SEPTAL MYOCARDIAL INFA RCTION , PROBABLY OLD ABNORMAL ECG PREVIOUS TRACING : 05/14/2017 13.46 No significant change from previous tracing noted. DOCTOR: Xiang Calhoun Interpretating Date/Time 03/03/2018 16:15:26
[2018-03-03] MEDS: QUEtiapine 100 MG Tablet PO SCH (22:22)
[2018-03-04] MEDS: Carbidopa/Levodopa CR 50/200 MG Tablet PO SCH ×3 (08:12→18:21)
[2018-03-04] MEDS ORDERED: Acetaminophen 325 MG Tablet PO PRN (12:05)
--- NOTE | 2018-03-04 12:18 | P.PNPSY ---
Subjective Chief Complaint: Severe agitation and responding to auditory and visual hallucinations Remarks: Reviewed electronic medical records and discussed case with staff. Follow-up was conducted in the patient's room with MERVAT Martinez present. His nurse reports that the patient has been compliant with medications and had no behavioral issues. Patient states that he feels "okay". He reports he is sleeping and eating well. He denies any side effects from medications. He is found sitting in a [place] chair with tremors. His speech is somewhat difficult to understand. Mental Status Examination Appearance: Disheveled Consciousness: Alert Orientation: Person, Date/Time (2017) Motor Activity: Other (Resting tremor as noted above) Speech: Slow, Other (Soft volume) Language: Adequate Fund of Knowledge: Adequate Attention and Concentration: Adequate Memory: Unremarkable Mood: Anxious Affect: Blunt Thought Process & Associations: Other (Somewhat slowed) Thought Content: Other (Some poverty of thought) Hallucination Type: None Delusion Type: None Suicidal Ideation: No Suicidal Plan: No Suicidal Intention: No Homicidal Ideation: No Homicidal Plan: No Homicidal Intention: No Insight: Poor Judgment: Poor Assessment and Plan - Assessment (1) Major neurocognitive disorder possibly due to Parkinson's disease, with behavioral disturbance Code(s): G20 - Parkinson's disease; F02.81 - Dementia in other diseases classified elsewhere with behavioral disturbance Status: Acute - Plan Plan: Patient will be reevaluated by the attending psychiatrist. Continue with current treatment plan. Justification for Continued Inpatient Stay: Moving this patient to a less restrictive environment would likely result in decompensation.
[2018-03-04] MEDS: QUEtiapine 100 MG Tablet PO SCH (20:57)
[2018-03-04] MEDS: Melatonin 5 MG Tablet PO PRN (20:57)
[2018-03-05] MEDS: Carbidopa/Levodopa CR 50/200 MG Tablet PO SCH ×3 (08:33→18:35)
--- NOTE | 2018-03-05 14:49 | P.PNPSY ---
Subjective Chief Complaint: Severe agitation and responding to auditory and visual hallucinations Remarks: Patient seen and examined with nurse in weekend coverage for Dr. Martinez. Chart reviewed. Case discussed with nursing staff. No reported behavioral issues noted overnight. Nurse does note that patient is on one-to-one and needs staff assistance for basic activities of daily living. On my examination today, the patient is oriented to person only. His thought process is somewhat tangential. No aggression noted. No psychotic material noted. He denies side effects from medications. No physical complaints. Vital Signs Temp Pulse Resp BP Pulse Ox 03/05/18 06:00 98.3 F 75 18 122/59 L 95 03/04/18 17:55 97.6 F 87 18 107/57 L 96 Intake and Output 03/05/18 03/05/18 03/05/18 06:59 14:59 22:59 Intake Total 120 / 120 Balance 120 / 120 Intake: Oral 120 / 120 Labs reviewed. Review of Systems All other systems reviewed negative except as stated in HPI (Limitation: Poor historian) Mental Status Examination Appearance: Disheveled Consciousness: Alert Orientation: Person Motor Activity: Other (Ongoing resting tremor. No other motor abnormalities noted) Speech: Slow, Other (Soft volume) Language: Adequate Fund of Knowledge: Adequate Attention and Concentration: Adequate Memory: Unremarkable Mood: Other (Calm) Affect: Blunt Thought Process & Associations: Tangential (In setting of dementia) Thought Content: Other (Some poverty of thought) Hallucination Type: None Delusion Type: None Suicidal Ideation: No Homicidal Ideation: No Insight: Poor Judgment: Poor Assessment and Plan - Assessment (1) Major neurocognitive disorder possibly due to Parkinson's disease, with behavioral disturbance Code(s): G20 - Parkinson's disease; F02.81 - Dementia in other diseases classified elsewhere with behavioral disturbance Status: Acute - Plan Plan: Continue Seroquel as ordered. Continue to monitor on the inpatient unit. Continue one-to-one. Continue other care as ordered. Justification for Continued Inpatient Stay: Risk for decompensation in less restrictive setting. Discharge Planning: Per Dr. Martinez
[2018-03-05] MEDS: Melatonin 5 MG Tablet PO PRN (20:42)
[2018-03-05] MEDS: QUEtiapine 100 MG Tablet PO SCH (20:42)
--- NOTE | 2018-03-06 08:56 | P.PNPSY ---
Subjective Chief Complaint: Severe agitation and responding to auditory and visual hallucinations Remarks: March 06, 2018 Patient seen with franter and discussed with nursing staff. Chart reviewed. Consult reviewed. Agree with consultants recommendation of follow-up with neurology on discharge. Patient is oriented to person, time and understands that he is in [place] but unsure about the hospital. At the present time he does not shows a tremor that was so obvious this past week from admission to the last time I saw him on March 03. Medications changes seem to have produced no ill effects and perhaps some improvement in his Parkinson's symptoms as well as given him a chance to sleep at night rather than be awakened every 2 hours. There is no evidence of psychosis at this time. The patient is lucid frequently , but obviously has some early signs of dementia. Mental Status Examination Appearance: Appropriate, Disheveled Consciousness: Alert Orientation: Person, Date/Time, Situation Motor Activity: Other (Ongoing resting tremor. No other motor abnormalities noted) Speech: Slow (Low volume), Other Language: Adequate Fund of Knowledge: Adequate Attention and Concentration: Adequate Memory: Impaired (Recent) Mood: Appropriate, Other (Calm) Affect: Blunt Thought Process & Associations: Logical, Goal directed Thought Content: Appropriate Hallucination Type: None Delusion Type: None Suicidal Ideation: No Suicidal Plan: No Suicidal Intention: No Homicidal Ideation: No Homicidal Plan: No Homicidal Intention: No Insight: Fair Judgment: Poor Assessment and Plan - Assessment (1) Major neurocognitive disorder possibly due to Parkinson's disease, with behavioral disturbance Code(s): G20 - Parkinson's disease; F02.81 - Dementia in other diseases classified elsewhere with behavioral disturbance Status: Acute - Plan Plan: Continue Seroquel as ordered. Continue to monitor on the inpatient unit. Continue one-to-one. Continue other care as ordered. March 06, 2018 Patient will be continued on one-to-one given his unsteadiness and the likelihood of a repeat of his fall that occurred on admission. There is some improvement but a need to continue monitor on the inpatient unit prior to discharge to a less intensive environment. Justification for Continued Inpatient Stay: Patient would likely decompensate in the less intensive setting and still may have complications of recent medication changes. Discharge Plannin03/06/2018 discharge planning can proceed with hope for discharge in the next 24 -48 hours.
[2018-03-06] MEDS: Carbidopa/Levodopa CR 50/200 MG Tablet PO SCH ×3 (09:08→18:36)
[2018-03-06] MEDS: QUEtiapine 100 MG Tablet PO SCH (20:27)
[2018-03-06] MEDS: Melatonin 5 MG Tablet PO PRN (20:27)
[2018-03-07] MEDS: Carbidopa/Levodopa CR 50/200 MG Tablet PO SCH ×3 (08:56→17:15)
--- NOTE | 2018-03-07 12:24 | P.DIET ---
Nutritional Evaluation Type of nutrition evaluation: initial Nutrition consult regarding: Diet Evaluation Nutrition screening: [facility] [place] comments: 03/06/18 [facility] [place] poor PO Intake Subjective Subjective Comments: Pt visited in the day room during lunch; Laurel Lal present and reports pt did good w/breakfast today. Pt pointed to each item on his lunch tray to say he liked it; however, pt was not having po intake during this visit. Pt provided some food preferences. Pt says he weighs 146-lb and "I dont need a Dietitian". Objective - Diagnosis Adjustment Disorder w/Depressed Mood - Objective % IBW: 121 Body Weight Used for Calculations: Actual (Admission wt. 66kg) Energy Needs - Lower Range (kCal/kg): 22 Energy Needs - Upper Range (kCal/kg): 27 Lower Limit kCal/kg (kCals): 1,452 Upper Limit kCal/kg (kCals): 1,782 Lower Limit Protein Factor (Grams per Kg): 1.1 Upper Limit Protein Factor (Grams per Kg): 1.4 Lower Protein Needs (Protein): 73 Upper Protein Needs (Protein): 92 Dietitian Reviewed in Medical Record: Current diet, Curent medications, Intake & Output, Labs, Medical history Diet Order: Regular Objective Comments: PMH includes: Behavioral Disorder, Dementia, HTN, Parkinson disease, polyosteoarthritis A1C 4.9 Assessment Assessment: Pt is at nutritional risk r/t poor po intake; variable 0% to 100% for meals. [place] pt food preferences. Send Ensure w/meals(= 250 kcal and 9g protein per serving). Labs reviewed. Dietitian will follow. Recommendations: 1. [place] pt food preferences 2. Send Ensure w/meals 3. Dietitian will follow Dietitian to Monitor: Lab values, Supplement acceptance, Intake & Output, Weight change, PO Intake, Medical course
--- NOTE | 2018-03-07 13:32 | P.TTN ---
- Patient Problems Problems: 1. Discharge planning 2. Medication compliance 3. Knowledge deficit 4. Lack of coping skills - Progress Toward Goals Provider Present: Other Provider Input: 03/07/18 Per patient's doctor patient presents with some dementia, some moments of lucidity. Doing well. Nurse Input: 03/07/18 Patient's nurse reports patient is still on a 1 to 1. Patient is medication complaint. Intermittently confused. Psychiatric Counselors Present: Jihan Sheth [facility] Psychiatric Therapist Input: 03/07/18 Patient presented pleasant, confused. Patient continues to require a 1 to 1. Patient is medication compliant, requiring assistance in his ADL's Group Spec/RT/OT/HURTADO Present: Marty Lira OT Group Spec/RT/OT/HURTADO Input: 03/07/18 Patient is not able to tolerate group activities - Documentation Teaching Recipient: Patient
--- NOTE | 2018-03-07 13:42 | P.PNPSY ---
Subjective Chief Complaint: Severe agitation and responding to auditory and visual hallucinations Remarks: March 07, 2018 Patient is seen today early and discussed with the night staff. Patient has been sleeping through the night. There is been no complaints of aggressive behavior. There has been no appreciable change in his movement disorder. Night staff the patient is making progress. In team we discussed the patient's placement at the [facility] approved by his . In describing his experience at [place] the patient believes this medication was never given consistently. Relates that there were days where he received the medicine only once and other days when he received it several times. The patient was making a strong case for being able to return to his home and help his who he regrets must handle all the business in the responsibilities of their home. Sadly, it is unlikely his would be able to manage all his needs, especially with his limited mobility and propensity to falls. He addressed this anticipating the objections to his going home with a statement that he was getting to where he could walk unassisted. The patient is finally aware of being at [facility] and is oriented in all spheres at the present time. He is at present quite lucid. It is anticipated at this point the patient could be discharged to an [facility] tomorrow. Mental Status Examination Appearance: Appropriate, Well dressed/well groomed Consciousness: Alert Orientation: x4 Motor Activity: Other (Ongoing resting tremor. No other motor abnormalities noted) Speech: Unremarkable Language: Adequate Fund of Knowledge: Adequate Attention and Concentration: Adequate Memory: Impaired (There is a waxing and waning of his recent memory especially) Mood: Appropriate, Other (Calm) Affect: Euthymic Thought Process & Associations: Intact, Logical, Goal directed Thought Content: Appropriate Hallucination Type: None Delusion Type: None Suicidal Ideation: No Suicidal Plan: No Suicidal Intention: No Homicidal Ideation: No Homicidal Plan: No Homicidal Intention: No Insight: Fair Judgment: Poor Assessment and Plan - Assessment (1) Major neurocognitive disorder possibly due to Parkinson's disease, with behavioral disturbance Code(s): G20 - Parkinson's disease; F02.81 - Dementia in other diseases classified elsewhere with behavioral disturbance Status: Acute - Plan Plan: Continue Seroquel as ordered. Continue to monitor on the inpatient unit. Continue one-to-one. Continue other care as ordered. March 06, 2018 Patient will be continued on one-to-one given his unsteadiness and the likelihood of a repeat of his fall that occurred on admission. There is some improvement but a need to continue monitor on the inpatient unit prior to discharge to a less intensive environment. March 07, 2018 The patient is much improved today oriented in all spheres and making extremely informed case for why he thinks he could go home rather than to an [facility]. It is anticipated the patient will be ready for discharge tomorrow. Response to medication: Improved sleep quality and some decrease in Parkinsonian symptoms. No aggressive behavior, no "sundowning". Justification for Continued Inpatient Stay: Patient should be ready for discharge tomorrow. Progress has been steady, but additional time is needed for assessment of the improvements and placement.
[2018-03-07] MEDS: QUEtiapine 100 MG Tablet PO SCH (20:14)
[2018-03-07] MEDS: Melatonin 5 MG Tablet PO PRN (20:14)
[2018-03-08] MEDS: Carbidopa/Levodopa CR 50/200 MG Tablet PO SCH ×3 (08:43→17:20)
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
[2018-03-08] MEDS: QUEtiapine 100 MG Tablet PO SCH (20:43)
[2018-03-09 05:49] VITALS: RESP 16
--- NOTE | 2018-03-09 08:27 | P.PNPSY ---
Subjective Chief Complaint: Severe agitation and responding to auditory and visual hallucinations Remarks: 03/09/2018 Subjective: The patient continues to show no signs of his brief psychotic episode. I have been no episodes of behavioral disturbance. Patient is lucid and wants to go home. His does not want him in [place]. He does not want to be at that [facility], or any other. No other [facility] is willing to take the patient to this point. I talked with the geriatric social worker and suggested that we send him home since there appears to be no other option. Home health services may be of some benefit and social worker psychiatric will address this with the this morning. A call at 8 AM received no answer. The patient is not willing to sign voluntary. Mental Status Examination Appearance: Appropriate, Well dressed/well groomed Consciousness: Alert Orientation: x4 Motor Activity: Other (Ongoing resting tremor. No other motor abnormalities noted) Speech: Unremarkable Language: Adequate Fund of Knowledge: Adequate Attention and Concentration: Adequate Memory: Impaired (There is a waxing and waning of his recent memory especially) Mood: Appropriate, Other (Calm) Affect: Euthymic Thought Process & Associations: Intact, Logical, Goal directed Thought Content: Appropriate Hallucination Type: None Delusion Type: None Suicidal Ideation: No Suicidal Plan: No Suicidal Intention: No Homicidal Ideation: No Homicidal Plan: No Homicidal Intention: No Insight: Adequate Judgment: Poor Assessment and Plan - Assessment (1) Major neurocognitive disorder possibly due to Parkinson's disease, with behavioral disturbance Code(s): G20 - Parkinson's disease; F02.81 - Dementia in other diseases classified elsewhere with behavioral disturbance Status: Acute - Plan Plan: Continue Seroquel as ordered. Continue to monitor on the inpatient unit. Continue one-to-one. Continue other care as ordered. March 06, 2018 Patient will be continued on one-to-one given his unsteadiness and the likelihood of a repeat of his fall that occurred on admission. There is some improvement but a need to continue monitor on the inpatient unit prior to discharge to a less intensive environment. March 07, 2018 The patient is much improved today oriented in all spheres and making extremely informed case for why he thinks he could go home rather than to an [facility]. It is anticipated the patient will be ready for discharge tomorrow. Response to medication: Improved sleep quality and some decrease in Parkinsonian symptoms. No aggressive behavior, no "sundowning". Justification for Continued Inpatient Stay: Patient has been the night placement by all [facility] because of his history of being Giraldo acted for agitation. Patient may need to go home with nursing services at home.
[2018-03-09] MEDS: Carbidopa/Levodopa CR 50/200 MG Tablet PO SCH ×3 (09:05→17:12)
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
--- NOTE | 2018-03-09 13:27 | P.DCO ---
- Physical Therapy Order: Evaluate and treat - Home Health Nursing Order: Nursing assessment with vital signs - Home Health Aide Order: To assist in: Bathing and personal care, biological technician and meal prep - Card Decorator Order: To evaluate: Living conditions/environment Order: To provide: Long range planning - Case Management Consult Case Management Consult-Home Health: Yes - Certification I have seen patient Lavon Tovar on 03/09/18. My clinical findings support the need for the requested home health care services because: The patient has been declined admission to an LONG TERM and there is deteriorating if only his is responsible for his care. Patient for now must be discharged home Limited mobility due to disease progression, Deconditioned with increased weakness, Medication compliance is questionable, Limited ability to care for self, Impaired cognition/judgement, High risk of falls I certify that my clinical findings support that this patient is homebound because: Impaired cognitive ability/safety, Unsteady gait/balance, Unsafe to leave home unassisted, Non-ambulatory: confined to bed or chair
[2018-03-09 17:33] VITALS: BP 147/74; PULSE 77; TEMP 98.2; O2SAT 94
== END 2018-03-09 19:40 | disposition home or self-care (01) ==
LOC: NEPE 17:08 → NEDA 03-01 11:36 → H250 03-01 14:24
PROVIDERS: ADMIT Psychiatry & Neurology Child & Adolescent Psychiatry; ATTEND Psychiatry & Neurology Child & Adolescent Psychiatry